=== PATIENT | female | born 1950 | race Caucasian/White ===

== ENCOUNTER 2024-07-30 12:55 | Emergency (ER) | payer OTHER ==
--- OUTSIDE RECORDS SUMMARY | 2024-07-30 12:58 | XMS REPORT | Continuity of Care Document ---
Author Name Unknown Address [address] [place] [address] [facility] Address [address] [place] [address] Care Team Providers Care Ship Officer Name Role Phone Oly Del Toro Primary Care Physician [phone] [email or web address] Attending Clinician Unavaila ble Jesusita Villalobos S Attending Clinician [phone] Nurse, [facility] Attending Clinician Un available Lisa Cormier Attending Clinician [phone] LISA RAMIREZ Attending Clinician Unavailabl e Doctor Unassigned, Micro Attending Clinician U navailable [email or web address] Admitting Clinician Unavaila ble Payers Payer Name Policy Type Policy Number Effective Date Expirati on Date Source [employer] MEDICARE OUT OF NETWORK [id number] 2020 00:00:00 Problems Condition Name Condition Details Condition Category Status Onset Date Resolution Date Last Treatment Date Treating Clinician Comments Source Menopausal flushing Menopausal Flushing Problem Active 2023-08- 00:00: 00 [facility] Osteoporos is Osteoporos is Problem Active 2023-08- 00:00: 00 [facility] Urgent desire to urinate Urgent Desire to Urinate Problem Active 2023-08 0- 00:00: 00 [facility] Pelvic mass Pelvic Mass Problem Active 2023-08 0- 00:00: 00 [facility] Screening mammograph y Screening Mammograph y Problem Active 01-07 00:00: 00 [facility] Lack or loss of sexual desire Lack or Loss of Sexual Desire Problem Active 01-07 00:00: 00 [facility] Urinary tract infectious disease Urinary Tract Infectious Disease Problem Active 8 00:00: 00 [facility] Superficia l pain on intercours e Superficia l Pain on Intercours e Problem Active 0 19 00:00: 00 [facility] Deep pain on intercours e Deep Pain on Intercours e Problem Active 0 2 00:00: 00 [facility] Type 2 diabetes mellitus without complicati on Type 2 Diabetes Mellitus without Complicati on Problem Active 10-17 00:00: 00 [facility] Herpesviru s infection Herpesviru s Infection Problem Active 02-13 00:00: 00 [facility] Herniation of rectum into vagina Herniation of Rectum into Vagina Problem Active 0 01-09 00:00: 00 [facility] Renal function tests outside reference range Renal Function Tests outside Reference Range Problem Active 12-27 00:00: 00 [facility] Vitamin D deficiency Vitamin D Deficiency Problem Active 5 00:00: 00 [facility] Pure hyperglyce ridemia Pure Hyperglyce ridemia Problem Active 5 00:00: 00 [facility] Urgent desire for stool Urgent Desire for Stool Problem Active 12-26 00:00: 00 [facility] Overactive urinary bladder Overactive Urinary Bladder Problem Active 12-26 00:00: 00 [facility] Acute vaginitis Acute Vaginitis Problem Active 11-21 00:00: 00 [facility] Lateral cystocele Lateral Cystocele Problem Active 11-21 00:00: 00 [facility] Incomplete uterovagin al prolapse Incomplete Uterovagin al Prolapse Problem Active 11-21 00:00: 00 [facility] Atrophic vaginitis Atrophic Vaginitis Problem Active 11-21 00:00: 00 [facility] Gynecologi abbey examinatio n abnormal Gynecologi abbey Examinatio n Abnormal Problem Active 11-21 00:00: 00 [facility] Vaginitis and vulvovagin itis Vaginitis and Vulvovagin itis Problem Active 12-17 00:00: 00 [facility] Menopausal symptom Menopausal Symptom Problem Active 12-17 00:00: 00 [facility] Allergies, Adverse Reactions, Alerts Allergy Name Allergy Type Status Severity Reaction(s) Onset Date Inactive Date Treating Clinician Comments Source NO KNOWN ALLERGIE S Drug Class Active [facility] Social History Social Habit Start Date Stop Date Quantity Comments Source Exposure to SARS-CoV-2 (event) Not sure [facility] Sex Assigned At 1950 00:00:00 1950 00:00:00 [facility] Smoking Status Start Date Stop Date Source Unknown if ever smoked [facility] Never Smoker [facility] Medications Ordered Medication Name Filled Medication Name Start Date Stop Date Current Medication? Ordering Clinician Indication Dosage Frequency Signature (SIG) Comments Components Source ondansetron (ZOFRAN ODT) 4 mg disintegrat ing tablet 2020-08 00:00: 00 Yes [id number] 4mg Take 1 tablet by mouth every 8 (eight) hours as needed for Nausea and Vomiting (N/V). [facility] Kenia Allergy [facility]ia Allergy No Kenia Allergy [facility] bumetanide bumetanide No bumetanide [facility] diphenoxyla te-atropine diphenoxyla te-atropine No diphenoxyl ate-atropi ne [facility] estradiol 0.01% (0.1 mg/gram) vaginal cream (0.5 gm) as directed with applicator; three times a week; 30 days estradiol 0.01% (0.1 mg/gram) vaginal cream (0.5 gm) as directed with applicator; three times a week; 30 days No estradiol 0.01% (0.1 mg/gram) vaginal cream (0.5 gm) as directed with applicator ; three times a week; 30 days [facility] fenofibrate fenofibrate No fe nofibrat e [facility] glimepiride glimepiride No gl imepirid e [facility] meclizine meclizine No meclizine [facility] pantoprazol e pantoprazol e No pantoprazo le [facility] Vital Signs Vital Name Observation Time Observation Value Comments S ource Body Weight 2024-06-06 00:00:00 146.6 [lb_av] [facility] Height 2024-06-06 00:00:00 64 [in_i] [facility] BP Diastolic 2024-06-06 00:00:00 78 mm[Hg] [facility] BMI (Body Mass Index) 2024-06-06 00:00:00 25.2 kg/m2 [facility] BP Systolic 2024-06-06 00:00:00 176 mm[Hg] [facility] Systolic blood pressure 2021-06-15 21:04:26 149 mm[Hg] [facility] Diastolic blood pressure 2021-06-15 21:04:26 96 mm[Hg] [facility] Heart rate 2021-06-15 21:04:26 69 /min [facility] Body temperature 2021-06-15 21:04:26 36.78 Nathalie [facility] Respiratory rate 2021-06-15 21:04:26 16 /min [facility] Body height 2021-06-15 19:52:00 160 cm [facility] Body weight 2021-06-15 19:52:00 64.864 kg [facility] BMI 2021-06-15 19:52:00 25.33 kg/m2 [facility] Oxygen saturation in Arterial blood by Pulse oximetry 2021-06-15 19:52:00 100 /min [facility] Systolic blood pressure 2021-06-15 19:26:00 168 mm[Hg] [facility] Diastolic blood pressure 2021-06-15 19:26:00 92 mm[Hg] [facility] Heart rate 2021-06-15 19:26:00 70 /min [facility] Body temperature 2021-06-15 19:26:00 36.11 Nathalie [facility] Respiratory rate 2021-06-15 19:26:00 20 /min [facility] Oxygen saturation in Arterial blood by Pulse oximetry 2021-06-15 19:26:00 98 /min [facility] Procedures Procedure Date / Time Performed Performing Clinician Source US TRANSVAGINAL 2024-07-19 00:00:00 [facility] MAMMO, screening, digital, bilateral 2024-06-06 00:00:00 [facility] DEXA 2024-06-06 00:00:00 [facility] BASIC METABOLIC PANEL (NA, K, CL, CO2, GLUCOSE, BUN, CREATININE, CA) 2021-06-15 21:01:00 Jesusita Orozco [facility] CBC WITH DIFF 2021-06-15 21:01:00 Jesusita Orozco [facility] CT HEAD WO CONTRAST 2021-06-15 20:48:53 Jesusita Orozco [facility] CONSENT/REFUSAL FOR DIAGNOSIS AND TREATMENT 2021-06-15 19:45:22 Doctor Unassigned, Micro [facility] ASSIGNMENT OF BENEFITS 2021-06-15 19:09:40 Docto r Unassigned, Micro [facility] Tubal Ligation [facility] Encounters Start Date/Time End Date/Time Encounter Type Admission Type Attending [facility] Care Facility Care Department Encounter ID Source 2021-06-30 07:39:40 Emergency [facility] [id number] [facility] 2024-07-19 00:00:00 2024-07-19 00:00:00 Randee Silverio MD: [address], [place] [address] , Ph. [facility] - GC_GCBZW_Maddie Gaitan* [id number] [facility] 2024-06-06 00:00:00 2024-06-06 00:00:00 TIMOTHY Knight: [address], [place] [address] , Ph. [facility] - GC_GCBZW_Maddie Gaitan* [id number] [facility] 2023-06-27 00:00:00 2023-06-27 00:00:00 Outpatient GC_GCBZW_Pipo hassan_Jamar [facility] [id number] [facility] 2021-06-15 14:59:00 2021-06-15 18:13:00 Emergency Jesusita Orozco [facility] [id number] [facility] 2021-06-15 14:11:31 2021-06-15 14:31:31 Nurse Visit Nurse, [facility] [id number] [facility] 2021-06-15 14:00:00 2021-06-15 14:00:00 Outpatient R [facility] [id number] [facility] 2021-06-15 00:00:00 2021-06-15 00:00:00 Orders Only Doctor Unassigned, Micro [facility] [id number] [facility] Results Test Description Test Time Test Comments Results Result Co mments Source [facility] METABOLIC PANEL (NA, K, CL, CO2, GLUCOSE, BUN, CREATININE, CA)2021-06-15 21:38:16* Test Item Value Reference Range Interpretation Comme nts NA (test code = 9096030401) 142 mmol/L 135-145 K (test code = 5308815831) 3.9 mmol/L 3.5-5.0 CL (test code = 1342170300) 101 mmol/L 98-108 CO2 TOTAL (test code = 8068327216) 29 mmol/L 23-31 AGAP (test code = 4338582845) 2-16 BUN (test code = 4678935015) 25 mg/dL 7-23 H GLUCOSE (test code = 7564990402) 102 mg/dL 70-110 CREATININE (test code = 6052819259) 1.00 mg/dL 0.50-1.04 CALCIUM (test code = 2724232455) 11.4 mg/dL 8.6-10.6 H eGFR (test code = 8869993898) mL/min/1.73m2 BRITANY (test code = BRITANY) Association of Glomerular Filtration Rate (GFR) and Staging of Kidney Disease* + --+ --+ ------+| GFR (mL/min/1.73 m2) ?| With Kidney Damage ?| ?Without Kidney Damage+ --------+ --------+ +| ?>90 ?| ?Stage one ?| ? Normal ?+ ---+ ---+ -------+| ?60-89 ?| ?Stage two ?| ? Decreased GFR ? + --+ --+ ------+| ?30-59 ?| ?Stage three ?| ? Stage three ? + --+ --+ ------+| ?15-29 ?| ?Stage four ? | ? Stage four ?+ ---+ ---+ -------+| ?<15 (or dialysis) ? ?| ?Stage five ? | ? Stage five ?+ ---+ ---+ -------+ *Each stage assumes the associated GFR level has been in effect for at least three months. ?Stages 1 to 5, with or without kidney disease, indicate chronic kidney disease. Notes: Determination of stages one and two (with eGFR >59mL/min/1.73 m2) requires estimation of kidney damage for at least three months as defined by structural or functional abnormalities of the kidney, manifested by either:Pathological abnormalities or Markers of kidney damage (including abnormalities in the composition of the blood or urine or abnormalities in imaging tests). Lab Interpretation (test code = 00709-7) Abnormal [facility] WITH [id number] 21:15:09* Test Item Value Reference Range Interpretation Comme nts WBC (test code = 6690-2) See_Comment [Automated LookBooker] The system which generated this result transmitted reference range: 4.30 - 11.10 10*3/?L. The reference range was not used to interpret this result as normal/abnormal. RBC (test code = 789-8) See_Comment [Automated [employer]er] The system which generated this result transmitted reference range: 3.93 - 5.25 10*6/?L. The reference range was not used to interpret this result as normal/abnormal. HGB (test code = 718-7) 14.4 g/dL 11.6-15.0 HCT (test code = 4544-3) 44.4 % 35.7-45.2 MCV (test code = 787-2) 85.9 fL 80.6-95.5 MCH (test code = 785-6) 27.9 pg 25.9-32.8 MCHC (test code = 786-4) 32.4 g/dL 31.6-35.1 RDW-SD (test code = 16926-1) 41.0 fL 39.0-49.9 RDW-CV (test code = 788-0) 13.2 % 12.0-15.5 PLT (test code = 777-3) See_Comment H [Automated messa ge] The system which generated this result transmitted reference range: 166 - 358 10*3/?L. The reference range was not used to interpret this result as normal/abnormal. MPV (test code = 73228-0) 9.5 fL 9.5-12.9 NRBC/100 WBC (test code = 2623244042) See_Comment [Automated [employer] ssage] The system which generated this result transmitted reference range: 0.0 - 10.0 /100 WBCs. The reference range was not used to interpret this result as normal/abnormal. NRBC x10^3 (test code = 2297158541) <0.01 See_Comment [Automated messa ge] The system which generated this result transmitted reference range: 10*3/?L. The reference range was not used to interpret this result as normal/abnormal. GRAN MAT (NEUT) % (test code = 770-8) 59.9 % IMM GRAN % (test code = 6568360280) 0.40 % LYMPH % (test code = 736-9) 30.6 % MONO % (test code = 5905-5) 7.2 % EOS % (test code = 713-8) 1.3 % BASO % (test code = 706-2) 0.6 % GRAN MAT x10^3(ANC) (test code = 0045143244) 5.39 10*3/uL 1.88-7.09 IMM GRAN x10^3 (test code = 6883298762) 0.04 10*3/uL 0.00-0.06 LYMPH x10^3 (test code = 731-0) 2.76 10*3/uL 1.32-3.29 MONO x10^3 (test code = 742-7) 0.65 10*3/uL 0.33-0.92 EOS x10^3 (test code = 711-2) 0.12 10*3/uL 0.03-0.39 BASO x10^3 (test code = 704-7) 0.05 10*3/uL 0.01-0.07 Lab Interpretation (test code = 05095-0) Abnormal [facility]"
[2024-07-30 14:17] LABS: Absolute Eosinophils 0.1 K/uL (0-0.5); Absolute Lymphocytes (CBC) 1.2 K/uL (0.7-4.9); Absolute Monocytes 0.6 K/uL (0.1-1.3); Absolute Neutrophil 5.1 K/uL (1.8-8.0); Basophils % 0.7 % (0-1.3); Hematocrit 45.3 % (36.0-45.0); Hemoglobin 15.3 g/dL (12.0-15.0); Lymphocytes % 16.7 % (15.3-44.8); MCH 27.4 pg (27.0-35.0); MCHC 33.7 g/dL (32.0-36.0); MCV 81.4 fL (80-100); MPV 7.5 fL (7.6-11.3); Neutrophils % 72.6 % (41.7-73.7); Nucleated Red Blood Cells % 0.1 % (0-0); Platelets 390 thou/uL (152-406); RBC Red Blood Cell Count 5.57 M/uL (3.86-4.86); Red Cell Distribution Width 14.2 % (12.1-15.2)
[2024-07-30 14:43] LABS: SARS-CoV-2 Antigen CONTROL BLUE LINE VIS/BG OK; SARS-CoV-2 Antigen Rapid Res Negative (Negative)
[2024-07-30 14:49] LABS: Albumin 4.4 g/dL (3.4-5.0); Anion Gap 13.4 mEq/L (5.0-15.0); Bilirubin Total 0.7 mg/dL (0.2-1.0); Globulin 4.3 g/dL (2.3-3.5); Protein, Total 8.7 g/dL (6.4-8.2)
[2024-07-30 14:51] LABS: Potassium 2.4 mEq/L (3.5-5.1)
[2024-07-30] MEDS ORDERED: KCL 20 MEQ/100 mL IVPB 100 ML IV ONE (15:58)
[2024-07-30] MEDS ORDERED: POTASSIUM 25 MEQ EFFERV TAB ONE (15:58)
[2024-07-30] MEDS ORDERED: NA CHLORIDE 0.9% 250 ML ONE (15:58)
--- NOTE | 2024-07-30 16:34 | RAD REPORT ---
EXAMINATION: CT Abdomen Pelvis Wo Contrast CLINICAL INDICATION: Female, 74 years old. diarrhea;Abd pain TECHNIQUE: CT abdomen and pelvis was performed, without IV contrast, as per department protocol. Axia l, sagittal and coronal reconstructions were obtained. One or more of the following dose reduction techniques were used: Automated exposure control, adjustment of the mA and kV according to the patien t size, and iterative reconstruction. Unless otherwise specified, incidental findings do not require dedicated imaging follow-up. COMPARISON: No prior exam. FINDINGS: The lack of intravenous contrast limits the sensitivity of this exam for evaluation of solid visceral organs, vascular structures, and retroperitoneum. LOWER CHEST: The visualized lung bases are clear. LIVER: Normal in size and contour. Diffuse parenchymal hypoattenuation suggesting steatosis. BILIARY SYSTEM: Status post cholecystectomy. SPLEEN: Normal size. No focal lesion. PANCREAS: No mass, ductal dilation, or kirt-pancreatic fluid. ADRENALS: Normal; no mass. KIDNEYS AND URETERS: Normal size and contour. No hydronephrosis. URINARY BLADDER: Suboptimally distended limiting evaluation. GASTROINTESTINAL TRACT: No evidence of bowel obstruction, significant free fluid, free air or abscess . Diffuse fluid opacification throughout most of the colon, nonspecific, and may relate to diarrheal state APPENDIX: Normal appendix. LYMPH NODES: No lymphadenopathy. MUSCULOSKELETAL: No acute or suspicious osseous abnormality. ADDITIONAL FINDINGS: Nonspecific mild fat stranding in the mesenteric root. This could be idiopathic or related to multiple possible etiologies, including but not limited to an upper abdominal infectious/inflammatory process, panniculitis, and can even be seen with neoplastic conditions such a s lymphoma. IMPRESSION: Central mesenteric fat stranding, a nonspecific finding as detailed above. Fluid opacification of nondistended colon. Diffuse parenchymal hypoattenuation of the liver, suggesting steatosis. No other acute or concerning abnormalities in the abdomen or pelvis, with evaluation limited by lack of IV contrast.
--- NOTE | 2024-07-30 18:36 | ER ---
Nurse's Notes [facility] Name: Jennifer Kumar Age: 74 yrs Sex: Female : 1950 Arrival Date: 07/30/2024 Time: 12:55 Bed 5 Private MD: Diagnosis: Infectious gastroenteritis and colitis, unspecified;Hypokalemia Presentation: 07/30 13:02 Chief complaint: Patient states: nausea/vomiting/diarrhea since Tuesday, reports hx of aa5 diarrhea but is more than usual. 13:02 Coronavirus screen: diarrhea, vomiting. Ebola Screen: Patient denies travel to an aa5 Ebola-affected area in the 21 days before illness onset. Initial Sepsis Screen: Does the patient meet any 2 criteria? HR > 90 bpm. Does the patient have a suspected source of infection? No. Patient's initial sepsis screen is negative. Risk Assessment: Do you want to hurt yourself or someone else? Patient reports no desire to harm self or others. Onset of symptoms was June 2024. 13:02 Acuity: YO 3 aa5 13:02 Method Of Arrival: Ambulatory aa5 Historical: - Allergies: 13:02 No Known Allergies; aa5 - Home Meds: 13:02 fenofibrate oral [Active]; Glipizide Oral [Active]; Lomotil oral [Active]; Bumetanide aa5 Oral [Active]; - PMHx: 13:02 Bordeline diabetes; Hypercholesterolemia; Diarrhea; aa5 - PSHx: 13:05 Cholecystectomy; Bladder lift; aa5 - Immunization history:: Adult Immunizations unknown. - Infectious Disease History:: Denies. - Social history:: Smoking status: Patient denies any tobacco usage or history of. Screenin:07 [facility] Fall Risk Assessment (Adult) History of falling in the last 3 months, hb including since admission No falls in past 3 months (0 pts) Confusion or Disorientation No (0 pts) Intoxicated or Sedated No (0 pts) Impaired Gait No (0 pts) Mobility Assist Device Used No (0 pt) Altered Elimination No (0 pt) Score/Fall Risk Level 0 - 2 = Low Risk Oriented to surroundings, Maintained a safe environment, Educated pt \T\ family on fall prevention, incl call for assistance when getting out of bed. Abuse screen: Denies threats or abuse. Denies injuries from another. Nutritional screening: No deficits noted. Tuberculosis screening: No symptoms or risk factors identified. Assessment: 16:15 General: Appears in no apparent distress. Behavior is calm, cooperative. Pain: Pain hb currently is 0 out of 10 on a pain scale. Neuro: Level of Consciousness is awake, alert, obeys commands, Oriented to person, place, time, situation. Cardiovascular: Patient's skin is warm and dry. Respiratory: Respiratory effort is even, unlabored, Respiratory pattern is regular, symmetrical. GI: Reports cramping, diarrhea, nausea, vomiting. : No signs and/or symptoms were reported regarding the genitourinary system. EENT: No signs and/or symptoms were reported regarding the EENT system. Derm: Skin is pink, warm \T\ dry. Musculoskeletal: No signs and/or symptoms reported regarding the musculoskeletal system. 17:07 Reassessment: Patient appears in no apparent distress at this time. Patient and/or hb family updated on plan of care and expected duration. Pain level reassessed. Patient is alert, oriented x 3, equal unlabored respirations, skin warm/dry/pink. 18:10 Reassessment: Patient appears in no apparent distress at this time. Patient and/or bp family updated on plan of care and expected duration. Pain level reassessed. Patient is alert, oriented x 3, equal unlabored respirations, skin warm/dry/pink. Vital Signs: 13:02 BP 152 / 91; Pulse 92; Resp 18 S; Temp 98.1(O); Pulse Ox 98% on R/A; Weight 63.05 kg aa5 (R); Height 5 ft. 3 in. (R); 17:07 BP 150 / 86; Pulse 79; Resp 15; Pulse Ox 99% on R/A; Pain 0/10; hb 18:10 BP 132 / 74; Pulse 71; Resp 16; Pulse Ox 100% ; bp 13:02 Body Mass Index 24.62 (63.05 kg, 160.02 cm) aa5 17:07 Pain Scale: Adult hb ED Course: 13:00 Patient arrived in ED. mg5 13:01 Snow Holt PA-C is PHCP. sb4 13:01 Alonzo Berumen MD is Attending Physician. sb4 13:02 Arm band placed on. aa5 13:05 Triage completed. aa5 14:00 Missed attempt(s): 22 gauge in right antecubital area. Bleeding controlled, band aid bc6 applied, catheter tip intact. 14:09 SARS RAPID Sent. bc6 14:09 Flu Sent. bc6 14:09 CBC with Diff Sent. bc6 14:09 CMP Sent. bc6 14:09 Lipase Sent. bc6 14:09 Initial lab(s) drawn, by me, sent to lab. Inserted saline lock: 24 gauge in right bc6 antecubital area, using aseptic technique. Blood collected. Flushed with 10 mL NS. 15:11 Abdomen In Process Unspecified. EDMS 15:55 Marshall Kong, RN is Primary Nurse. bp 16:15 Patient has correct armband on for positive identification. Provided Education on: use hb of call light . 16:25 Inserted saline lock: 22 gauge in left forearm, using aseptic technique. Flushed with bp 10 mL NS. 18:35 Osmani Borjas MD is Referral Physician. sb4 18:52 No provider procedures requiring assistance completed. IV discontinued, intact, bp bleeding controlled, No redness/swelling at site. Pressure dressing applied. Administered Medications: 16:15 Drug: Ondansetron IVP 4 mg IVP once; over 2 minutes Route: IVP; Site: left forearm; bp 18:54 Follow up: Response: No adverse reaction bp 16:15 Drug: NS 0.9% IV 1000 ml IV at 1 bolus Per protocol; to be given as a bolus over 60 bp minutes Route: IV; Rate: 1 bolus; Site: left forearm; 18:54 Follow up: IV Status: Completed infusion bp 16:15 Drug: Potassium PO Effervescent Tablet 50 mEq PO once; dissolve in 4 ounces of water or bp juice Route: PO; 18:35 Follow up: Response: No adverse reaction bp 16:15 Drug: Potassium Chloride IV 20 mEq IV at calculated rate once; administer over 1-2 bp hours Route: IV; Rate: calculated rate; Site: left forearm; 18:35 Follow up: IV Status: Completed infusion bp 18:39 Drug: Ciprofloxacin PO 500 mg PO once Route: PO; bp 18:53 Follow up: Response: No adverse reaction bp 18:39 Drug: metroNIDAZOLE PO 500 mg PO once Route: PO; bp 18:53 Follow up: Response: No adverse reaction bp Medication: 17:07 VIS not applicable for this client. hb Outcome: 18:35 Discharge ordered by MD. [email or web address] 18:52 Discharged to home ambulatory, with family, bp 18:52 Condition: stable 18:52 Discharge instructions given to patient, family, Instructed on discharge instructions, follow up and referral plans. medication usage, Demonstrated understanding of instructions, follow-up care, medications, Prescriptions given X 2, 18:54 Patient left the ED. bp Signatures: Dispatcher [employer] EDMS Sravanthi Laguerre RN RN aa5 Rylie Paulson RN RN Marshall Pearson RN RN Snow James, PA-Bogdan PAAlejandro sb4 Brandee Rodríguez6 Margot Randolph mg5 Corrections: (The following items were deleted from the chart) 13:07 13:02 BP 152 / 91; Pulse 92bpm; Resp 18bpm; Spontaneous; Pulse Ox 98% RA; aa5 aa5
--- NOTE | 2024-07-30 18:36 | EDPHYS ---
Physician Documentation [facility] Name: Jennifer Kumar Age: 74 yrs Sex: Female : 1950 Arrival Date: 07/30/2024 Time: 12:55 Bed 5 Private MD: ED Physician Alonzo Berumen HPI: 07/30 14:09 This 74 yrs old Female presents to ER via Ambulatory with complaints of sb4 Vomiting/Diarrhea. 14:09 patient reports chronic diarrhea in which she takes loperamide regularly but states her sb4 diarrhea got more severe 3 days ago with associated nausea and vomiting. does reports some generalized abdominal pain as well. denies any known fever. denies any blood in her stool. denies any recent antibiotic usage. Historical: - Allergies: 13:02 No Known Allergies; aa5 - Home Meds: 13:02 fenofibrate oral [Active]; Glipizide Oral [Active]; Lomotil oral [Active]; Bumetanide aa5 Oral [Active]; - PMHx: 13:02 Bordeline diabetes; Hypercholesterolemia; Diarrhea; aa5 - PSHx: 13:05 Cholecystectomy; Bladder lift; aa5 - Immunization history:: Adult Immunizations unknown. - Infectious Disease History:: Denies. - Social history:: Smoking status: Patient denies any tobacco usage or history of. ROS: 14:09 Constitutional: Negative for fever, chills, and weight loss, sb4 14:57 Abdomen/GI: Positive for abdominal pain, nausea, vomiting, and diarrhea, sb4 14:57 All other systems are negative, Exam: 14:57 Constitutional: This is a well developed, well nourished patient who is awake, alert, sb4 and in no acute distress. Head/Face: Normocephalic, atraumatic. Eyes: Extra-ocular motions intact. Periorbital areas with no swelling, redness, or edema. ENT: Mucous membranes moist. Cardiovascular: Regular rate and rhythm with a normal S1 and S2. Respiratory: No increased work of breathing, no retractions or nasal flaring. Abdomen/GI: Soft, non-tender, no distension. Skin: Warm, dry with normal turgor. Normal color with no rashes, no lesions, and no evidence of cellulitis. Vital Signs: 13:02 BP 152 / 91; Pulse 92; Resp 18 S; Temp 98.1(O); Pulse Ox 98% on R/A; Weight 63.05 kg aa5 (R); Height 5 ft. 3 in. (R); 17:07 BP 150 / 86; Pulse 79; Resp 15; Pulse Ox 99% on R/A; Pain 0/10; hb 18:10 BP 132 / 74; Pulse 71; Resp 16; Pulse Ox 100% ; bp 13:02 Body Mass Index 24.62 (63.05 kg, 160.02 cm) aa5 17:07 Pain Scale: Adult hb MDM: 13:02 Medical Screening Exam initiated sb4 16:09 Data reviewed: vital signs, nurses notes, lab test result(s), radiologic studies. sb4 17:29 Counseling: I had a detailed discussion with the patient and/or guardian regarding the sb4 historical points, exam findings, and any diagnostic results supporting the discharge/admit diagnosis, lab results, radiology results, the need for outpatient follow up, a crystal cutter, to return to the emergency department if symptoms worsen or persist or if there are any questions or concerns that arise at home. 07/30 13:07 Order name: CBC with Diff; Complete Time: 14:28 sb4 07/30 13:07 Order name: CMP; Complete Time: 14:52 sb4 07/30 13:07 Order name: Lipase; Complete Time: 14:52 sb4 07/30 13:07 Order name: Flu; Complete Time: 14:48 sb4 07/30 13:07 Order name: SARS RAPID; Complete Time: 14:48 sb4 07/30 15:08 Order name: Abdomen ; Complete Time: 16:36 EDMS 07/30 13:07 Order name: IV Saline Lock; Complete Time: 14:09 sb4 07/30 13:07 Order name: Labs collected and sent; Complete Time: 14:09 sb4 Administered Medications: 16:15 Drug: Ondansetron IVP 4 mg IVP once; over 2 minutes Route: IVP; Site: left forearm; bp 18:54 Follow up: Response: No adverse reaction bp 16:15 Drug: NS 0.9% IV 1000 ml IV at 1 bolus Per protocol; to be given as a bolus over 60 bp minutes Route: IV; Rate: 1 bolus; Site: left forearm; 18:54 Follow up: IV Status: Completed infusion bp 16:15 Drug: Potassium PO Effervescent Tablet 50 mEq PO once; dissolve in 4 ounces of water or bp juice Route: PO; 18:35 Follow up: Response: No adverse reaction bp 16:15 Drug: Potassium Chloride IV 20 mEq IV at calculated rate once; administer over 1-2 bp hours Route: IV; Rate: calculated rate; Site: left forearm; 18:35 Follow up: IV Status: Completed infusion bp 18:39 Drug: Ciprofloxacin PO 500 mg PO once Route: PO; bp 18:53 Follow up: Response: No adverse reaction bp 18:39 Drug: metroNIDAZOLE PO 500 mg PO once Route: PO; bp 18:53 Follow up: Response: No adverse reaction bp Disposition Summary: 07/30/24 18:35 Discharge Ordered Notes: Location: Home sb4 Problem: new sb4 Symptoms: have improved sb4 Condition: Stable sb4 Diagnosis - Infectious gastroenteritis and colitis, unspecified sb4 - Hypokalemia sb4 Followup: sb4 - With: Osmani Borjas MD - When: 10 - 14 days - Reason: Further diagnostic work-up, Recheck today's complaints, Re-evaluation by your physician Discharge Instructions: - Discharge Summary Sheet sb4 - Food Choices to Help Relieve Diarrhea, Adult sb4 - Potassium Content of Foods sb4 - Hypokalemia sb4 Forms: - Antibiotic Education sb4 - Patient Portal Instructions sb4 - Leadership Thank You Letter sb4 Prescriptions: - Flagyl 500 mg Oral Tablet - take 1 tablet ORAL route every 12 hours for 7 days; 14 tablet; Refills: 0, sb4 Product Selection Permitted - Cipro 500 mg Oral Tablet - take 1 tablet ORAL route every 12 hours for 7 days; 14 tablet; Refills: 0, sb4 Product Selection Permitted Critical care time excluding procedures: 14:51 Critical care time: Bedside Care: 20 minutes, Consultation: 10 minutes, Family sb4 Intervention: 5 minutes. Total time: 35 minutes Signatures: Dispatcher [employer] Sravanthi Krause RN RN aa5 Marshall Kong, RN RN bp Snow Holt PA-C PAAlejandro sb4 Corrections: (The following items were deleted from the chart) 13:08 13:08 CBC+H.LAB.BRZ ordered. EDMS EDMS 13:08 13:08 COMPREHENSIVE METABOLIC PANEL+C.LAB.BRZ ordered. EDMS EDMS 13: 13:08 LIPASE+C.LAB.BRZ ordered. EDMS EDMS 13: 13:08 Fecal Leukocyte Stain+BA.LAB.BRZ ordered. EDMS EDMS 13: 13:08 Ova and Parasites+MR.LAB.BRZ ordered. EDMS EDMS 13: 13:08 Rotavirus Antigen+BA.LAB.BRZ ordered. EDMS EDMS 13:08 13:08 Stool Culture+BA.LAB.BRZ ordered. EDMS EDMS 13:08 13:08 C.difficile GDH Ag \T\ Toxin AB+LAB.BRZ ordered. EDMS EDMS 13: 13:08 Abdomen Pelvis W Con+CT.RAD.BRZ ordered. EDMS EDMS 13: 13:08 Influenza Screen (A \T\ B)+BA.LAB.BRZ ordered. EDMS EDMS 13:08 13:08 SARS-COV-2 Antigen Rapid+I.LAB.BRZ ordered. EDMS EDMS
[2024-07-30] MEDS ORDERED: CIPROFLOXACIN HCL 500 MG TAB ONE (18:37)
[2024-07-30] MEDS ORDERED: metroNIDAZOLE 500 MG TABLET ONE (18:37)
[2024-07-30 20:40] VITALS: TEMP 98.1
[2024-07-30 20:42] VITALS: BP 132/74; O2SAT 100
== END 2024-07-30 18:54 | disposition home or self-care (01) ==
LOC: ER 12:55
DX: A09 Infectious gastroenteritis and colitis, unspecified (principal); E87.6 Hypokalemia; Z11.52 Encounter for screening for COVID-19; R73.03 Prediabetes; E78.00 Pure hypercholesterolemia, unspecified
CPT/HCPCS: 96365; 85025; 36415; 83690; 80053; 87804 ×2; 74176; 96375; 99284; 96366; 87811; J3480; J7050